=== PATIENT | male | born 1995 | race Caucasian/White ===

== ENCOUNTER 2023-11-20 13:04 | Outpatient (AMB) | payer OTHER, SELFPAY ==
--- NOTE | 2023-11-20 13:20 | MHC.OFFVIS ---
Intake Intake Visit Reasons: testicular pain N50. 819 Intake Note: New Patient presents for initial visit for testicular pain, epididymal cyst Urology Medications: none Blood Thinner: none Patient stated he has mild left testicular pain, the pain comes and goes. Patient smokes electronic vape for about 10 years. Tower Helper Required: No Accompanied by: Self / Same As Patient Allergies No Known Allergies Allergy (Verified 11/20/23 22:52) Medication List - Last Reconciled 11/20/23 by KENDY Krause doxycycline hyclate 100 mg PO BID 14 days HPI HPI Comments History of Present Illness Details Asif is a pleasant 28-year-old male patient of Dr. Adan. He has a past medical history of PTSD, insomnia, obesity, major depression, an electronic cigarette use. He presents to the office today as a new patient for left epididymal head cyst. In discussion with the patient today he reports noting intermittent left-sided testicular/scrotal discomfort. He reports pain has been present for approximately 4 months. He reports having followed up with his PCP at which time a scrotal ultrasound was ordered and performed. These results were reviewed with the patient today. Right testicle appears normal no hydrocele or varicocele present. The epididymis is unremarkable. Left testicle with 0.3 cm epididymal head cyst no hydrocele or varicocele present. In assessment of the patient today no open areas, drainage, and or redness noted to the penis, testicles, and or scrotum. Right-sided epididymal head tenderness noted no palpable lesions, masses, and or or lumps. Patient reports intermittent discomfort he typically experiences is greater on left however on exam today right-sided epididymal head tenderness noted as mentioned. He denies any previous surgical history and or trauma to this area. When asked he is sexually active however he reports there is no concerns for sexually transmitted disease. He otherwise denies any urinary concerns. When asked he denies urinary urgency, urinary frequency, incontinence, nocturia, hematuria, dysuria, foul smelling urine, changes to urinary stream, flank pain, fever, and or chills. He is happy with his current voiding parameters. He otherwise offers no other issues or concerns at this time. [facility] Medical History (Updated 11/20/23 @ 23:01 by KENDY Krause) Post traumatic stress disorder Primary insomnia Class 1 obesity Major depression, recurrent Insomnia Generalized anxiety disorder Electronic cigarette use Anxiety and depression Surgical History History of laparoscopic appendectomy Social History (Updated 11/20/23 @ 13:36 by Sadia Knox CMA) e-Cigarette/Vaping Use: Former Use Review of Systems Const Reports as per HPI Eyes Reports no additional complaints ENT Reports no additional complaints Card Reports no additional complaints Resp Reports no additional complaints GI Reports no additional complaints Reports as per HPI Musc Reports no additional complaints Neuro Reports as per HPI Psych Reports as per HPI Endo Reports no additional complaints Physical Exam Const General: cooperative, comfortable, no acute distress, well developed, alert and awake Nutritional Appearance: overweight Orientation/consciousness: patient oriented x3 Limitations: no limitations HEENT Head: Yes normal to inspection, Yes normocephalic and Yes atraumatic Ears: hearing grossly normal bilaterally Eyes General: appearance normal, both eyes and all related structures Neck Neck: Yes normal visual inspection and Yes trachea midline Chest Chest palpation & inspection: normal inspection of the chest Resp Effort & Inspection: normal respiratory effort and able to speak in complete sentences Cardio Rate: regular rate GI Inspection: Yes normal to inspection Other: as per HPI General: Yes no CVA tenderness Back/Spine/Pelvis Back: no CVA tenderness Skin General skin exam: no rashes or lesions noted Neuro General: patient oriented x3 Extrem General: Yes normal to inspection Psych Appearance: grossly normal and well kempt Mental Status: mental status grossly normal Speech and movement: Normal speech and movement present and Clear speech present Affect: normal affect Attitude: cooperative Thought process: Normal thought process present Thought content: Normal thought content present Insight: Fair insight present (Psych) Judgement: Fair judgement present (Psych) Results AMB Urinalysis, Automated UA Leukoctes 0 Omar/uL Last Edit by Sadia Knox CMA on 11/20/23 13:35 UA Nitrite Negative Last Edit by Sadia Knox CMA on 11/20/23 13:35 UA Urobilinogen 0.2 mg/dL Last Edit by Sadia Knox CMA on 11/20/23 13:35 UA Protein 15 mg/dL Last Edit by Sadia Knox CMA on 11/20/23 13:35 UA pH 6.0 Last Edit by Sadia Knox CMA on 11/20/23 13:35 UA Blood 0 Vinayak/uL Last Edit by Sadia Knox [employer] on 11/20/23 13:35 UA Specific [place] 1.030 Last Edit by Sadia Knox [facility] on 11/20/23 13:35 UA Ketone Negative Last Edit by Sadia Knox [employer] SIGNAL [employer] on 11/20/23 13:35 UA Bilirubin 0 mg/dL Last Edit by Sadia Knox [facility] on 11/20/23 13:35 UA Glucose 0 mg/dL Last Edit by Sadia Knox [facility] on 11/20/23 13:35 Results Reviewed Results Reviewed: Laboratory Last Values Urine pH (Auto) 6.0 11/20/23 13:21 Specific [place] (Auto) 1.030 11/20/23 13:21 Urine Protein (Auto) 15 mg/dL 11/20/23 13:21 Glucose (UA)(Auto) 0 mg/dL 11/20/23 13:21 Urine Ketones (Auto) Negative 11/20/23 13:21 Urine Blood (Auto) 0 Vinayak/uL 11/20/23 13:21 Urine Nitrite (Auto) Negative 11/20/23 13:21 Urine Bilirubin (Auto) 0 mg/dL 11/20/23 13:21 Urine Urobilinogen (Auto) 0.2 mg/dL 11/20/23 13:21 Leukocyte Esterase (Auto) 0 Omar/uL 11/20/23 13:21 Assessment & Plan Assessment & Plan (1) Epididymal cyst: Code(s): N50.3 - Cyst of epididymis (2) Epididymitis: Code(s): N45.1 - Epididymitis Plan In office urinalysis results reviewed with the patient today; as noted above. Recent scrotal ultrasound results reviewed with the patient today; as noted above. Discuss treatment of epididymitis given physical assessment. Discussed at length potential causes of epididymal head cyst as well as epididymitis. He currently denies any bothersome urinary issues or concerns. He is happy with his current voiding parameters. Start doxycycline as discussed and prescribed. Discussed [id number] Tylenol Motrin as needed for pain, application of ice and scrotal elevation. Follow-up in 1 month; if not sooner with any issues, concerns, and or questions. Orders: Orders AMB Urinalysis Automated Today R33.9 - Retention of urine, unspecified Medications: New doxycycline hyclate 100 mg PO BID 14 days 28 tabs 0RF N39.0 - Urinary tract infection, site not specified, N45.1 - Epididymitis Patient Instructions: The patient had an opportunity to ask questions regarding the treatment plan. All questions were answered. Physical exam, labs, and imaging were discussed and reviewed in detail. As well as risks, benefits, and discussion of treatment choices. No major barriers to understanding were identified. The patient expressed understanding and agreement with the above treatment plan. The patient was made aware they should contact our office by phone for worsening of their current condition, the appearance of new symptoms, or with any questions or concerns. Compliance is encouraged with any medications and follow up testing that is ordered. It is a privilege to be allowed the opportunity to participate in? your urological care.? Again, if you have any questions or concerns If you have any questions or concerns please do not hesitate to contact me. The office is [phone]. This note is constructed using voice recognition software. While every effort has been made to ensure accuracy legal examiner errors may have been included. Yours sincerely, KENDY Krause Coding Level of Care Code New Pt Level 4 (54879) Diagnoses Epididymal cyst N50.3 Epididymitis N45.1
== END 2023-11-20 13:54 | disposition home or self-care (01) ==
PROVIDERS: Visit Provider Nurse Practitioner Family
DX: N50.3 Cyst of epididymis (principal); N45.1 Epididymitis
CPT/HCPCS: 99204

== ENCOUNTER → 2023-11-20 13:04 | Outpatient (BNVA) | payer OTHER, SELFPAY | PROVIDERS: Visit Provider Nurse Practitioner Family | DX: N50.3 Cyst of epididymis (principal); N45.1 Epididymitis | CPT/HCPCS: 81003; 99202 ==

== ENCOUNTER 2024-01-03 14:33 | Outpatient (AMB) | payer OTHER, SELFPAY ==
--- NOTE | 2024-01-03 14:39 | MHC.OFFVIS ---
Intake Intake Visit Reasons: 6w follow up Intake Note: Patient presents for follow up visit for testicular pain, epididymal cyst Urology Medications: treated with doxycycline Blood Thinner: none Regional Medical Director Required: No Accompanied by: Self / Same As Patient Allergies No Known Allergies Allergy (Verified 01/03/24 15:20) Medication List - Last Reconciled 01/03/24 by KENDY Krause bupropion HCl 150 mg PO QAM HPI HPI Comments History of Present Illness Details Asif is a pleasant 28-year-old male patient of Dr. Adan. He has a past medical history of PTSD, insomnia, obesity, major depression, an electronic cigarette use. He presents to the office today for follow-up. Of note, patient was seen approximately 6 weeks ago as a new patient for left epididymal head cyst. During assessment of the patient patient during last office visit epididymal head tenderness noted bilaterally therefore he was treated with doxycycline for presumed epididymitis. In discussion with the patient today he reports having completed antibiotic therapy. He does report significant improvement in scrotal pain he had been experiencing. He does continue with small left-sided epididymal head cyst. Discussed surveillance monitoring versus surgical intervention. He otherwise denies any bothersome urinary issues or concerns. He denies urinary urgency, urinary frequency, incontinence, nocturia, hematuria, dysuria, foul smelling urine, changes to urinary stream, flank pain, fever, and or chills. He is happy with his current voiding parameters. He otherwise offers no other issues or concerns at this time. [facility] Medical History Post traumatic stress disorder Primary insomnia Class 1 obesity Major depression, recurrent Insomnia Generalized anxiety disorder Electronic cigarette use Anxiety and depression Surgical History History of laparoscopic appendectomy Social History e-Cigarette/Vaping Use: Former Use Review of Systems Const Reports as per HPI Eyes Reports no additional complaints ENT Reports no additional complaints Card Reports no additional complaints Resp Reports no additional complaints GI Reports no additional complaints Reports as per HPI Musc Reports no additional complaints Neuro Reports as per HPI Psych Reports as per HPI Endo Reports no additional complaints Physical Exam Const General: cooperative, healthy appearing, comfortable, no acute distress, well developed, alert and awake Nutritional Appearance: overweight Orientation/consciousness: patient oriented x3 Limitations: no limitations HEENT Head: Yes normal to inspection, Yes normocephalic and Yes atraumatic Ears: hearing grossly normal bilaterally Eyes General: appearance normal, both eyes and all related structures Neck Neck: Yes normal visual inspection and Yes trachea midline Chest Chest palpation & inspection: normal inspection of the chest Resp Effort & Inspection: normal respiratory effort and able to speak in complete sentences Cardio Rate: regular rate GI Inspection: Yes normal to inspection Other: as per HPI General: Yes no CVA tenderness Back/Spine/Pelvis Back: no CVA tenderness Skin General skin exam: no rashes or lesions noted Neuro General: patient oriented x3 Extrem General: Yes normal to inspection Psych Appearance: grossly normal and well kempt Mental Status: mental status grossly normal Speech and movement: Normal speech and movement present and Clear speech present Affect: normal affect Attitude: cooperative Thought process: Normal thought process present Thought content: Normal thought content present Insight: Fair insight present (Psych) Judgement: Fair judgement present (Psych) Results AMB Urinalysis, Automated UA Leukoctes 0 Omar/uL Last Edit by [employer] on 01/03/24 14:55 UA Nitrite Negative Last Edit by [employer] on 01/03/24 14:55 UA Urobilinogen 0.2 mg/dL Last Edit by [employer] on 01/03/24 14:55 UA Protein 0 mg/dL Last Edit by [employer] on 01/03/24 14:55 UA pH 6.5 Last Edit by [employer] on 01/03/24 14:55 UA Blood 0 Vinayak/uL Last Edit by [employer] on 01/03/24 14:55 UA Specific [place] 1.015 Last Edit by [employer] on 01/03/24 14:55 UA Ketone Negative Last Edit by [employer] on 01/03/24 14:55 UA Bilirubin 0 mg/dL Last Edit by [employer] on 01/03/24 14:55 UA Glucose 0 mg/dL Last Edit by [employer] on 01/03/24 14:55 Results Reviewed Results Reviewed: Laboratory Last Values Urine pH (Auto) 6.5 01/03/24 14:40 Specific [place] (Auto) 1.015 01/03/24 14:40 Urine Protein (Auto) 0 mg/dL 01/03/24 14:40 Glucose (UA)(Auto) 0 mg/dL 01/03/24 14:40 Urine Ketones (Auto) Negative 01/03/24 14:40 Urine Blood (Auto) 0 Vinayak/uL 01/03/24 14:40 Urine Nitrite (Auto) Negative 01/03/24 14:40 Urine Bilirubin (Auto) 0 mg/dL 01/03/24 14:40 Urine Urobilinogen (Auto) 0.2 mg/dL 01/03/24 14:40 Leukocyte Esterase (Auto) 0 Omar/uL 01/03/24 14:40 Assessment & Plan Assessment & Plan (1) Epididymitis: Code(s): N45.1 - Epididymitis (2) Epididymal cyst: Code(s): N50.3 - Cyst of epididymis Plan In office urinalysis results reviewed with the patient today; as noted above. Patient reports significant improvement in scrotal/testicular discomfort he had been experiencing. Reassurance provided. Discussed surveillance monitoring of epididymal cyst verses surgical intervention. Patient otherwise denies any bothersome urinary issues or concerns. Reports be happy with current voiding parameters. Patient will call if any urological issues arise Orders: Orders AMB Urinalysis Automated 01/03/24 Z13.9 - Encounter for screening, unspecified Patient Instructions: The patient had an opportunity to ask questions regarding the treatment plan. All questions were answered. Physical exam, labs, and imaging were discussed and reviewed in detail. As well as risks, benefits, and discussion of treatment choices. No major barriers to understanding were identified. The patient expressed understanding and agreement with the above treatment plan. The patient was made aware they should contact our office by phone for worsening of their current condition, the appearance of new symptoms, or with any questions or concerns. Compliance is encouraged with any medications and follow up testing that is ordered. It is a privilege to be allowed the opportunity to participate in? your urological care.? Again, if you have any questions or concerns If you have any questions or concerns please do not hesitate to contact me. The office is [phone]. This note is constructed using voice recognition software. While every effort has been made to ensure accuracy catering director errors may have been included. Yours sincerely, KENDY Krause Coding Level of Care Code Est Pt Level 3 (13151) Diagnoses Epididymitis N45.1 Epididymal cyst N50.3
== END 2024-01-03 15:11 | disposition home or self-care (01) ==
PROVIDERS: Visit Provider Nurse Practitioner Family
DX: N45.1 Epididymitis (principal); N50.3 Cyst of epididymis
CPT/HCPCS: 99213

== ENCOUNTER → 2024-01-03 14:33 | Outpatient (BNVA) | payer OTHER, SELFPAY | PROVIDERS: Visit Provider Nurse Practitioner Family | DX: N50.3 Cyst of epididymis (principal); N45.1 Epididymitis; Z79.899 Other long term (current) drug therapy | CPT/HCPCS: 81003; 99212 ==